=== PATIENT | female | born 1970 | race Caucasian/White ===

== ENCOUNTER 2016-06-28 03:33 | Emergency (ER) | payer OTHER ==
[2016-06-28] MEDS ORDERED: KETOROLAC TROMETHAMINE 30 MG/1 ML VIAL IVPUSH ONE (03:49)
--- NOTE | 2016-06-28 03:49 | PDOC ---
History of Present Illness - General Chief Complaint: Pain, Acute Stated Complaint: RLQ PAIN RADIATING INTO BACK Time Seen by Provider: 06/28/16 03:41 History Source: Patient Exam Limitations: No Limitations - History of Present Illness Initial Comments: 06/28/16 03:49 This is a 46-year-old female who comes in complaining of right lower quadrant, right back and right flank pain. Patient Is being treated for stage IV metastatic breast cancer. Patient is undergoing chemotherapy. Patient was recently started on antibiotics for treatment of a urinary tract infection with Cipro. Patient now comes in complaining of increased urination, foul-smelling urine and dysuria. In addition that she is complaining of some right thigh Back pain. Patient denies any nausea, vomiting or diarrhea. Patient denies any fevers or chills. Patient went back to her doctor on 2 days ago and had a repeat urine that did show some white cells and bacteria still even with the treatment urine culture was not available at that time. PAST MEDICAL HISTORY: no significant history PAST SURGICAL HISTORY: no significant history FAMILY HISTORY: no pertinant history SOCIAL HISTORY: Pt lives with family and is employed. MEDICATIONS: reviewed ALLERGIES: As per nursing notes Review of Systems General: No fevers or chills, no weakness, no weight loss HEENT: No change in vision. No sore throat,. No ear pain CardioVascular: No chest pain or shortness of breath Respiratory:No cough, or wheezing. Gastrointestinal: no nausea, vomitting, diarrhea or constipation, No rectal bleeding Genitourinary: No dysuria, hematuria, or frequency Musculoskeletal: No joint or muscle pain or swelling Neurologic: No headache, vertigo, dizziness or loss of consciousness Psychiatric: nor depression Skin: No rashes or easy bruising Endocrine: no increased thirst or abnormal weight change Allergic: no skin or latex allergy All other systems reviewed and normal Exam: General: Well-nourished well-developed individual, no acute distress HEENT: Throat: Normal, tonsils normal, no erythema or exudate Neck: Supple, no meningeal signs, no lymphadenopathy Eyes::Pupils equal reactive and round, extraocular motion intact Chest: Nontender to palpation Cardiac: S1-S2 normal, regular rate and rhythm, no murmurs rubs or gallops Respiratory: Lungs clear to auscultation bilateral Abdomen: Soft, nondistended, normal bowel sounds, nontender to palpation diffusely Back/Flank: Is tenderness on palpation right CVA area as well as right flank. Extremities: Warm, dry, no cyanosis, clubbing, or edema Skin: No rashes Neuro: Alert and oriented x3, nonfocal exam, grossly intact, normal gait Psych: Normal mood and affect 06/28/16 05:00 Urinalysis shows large amount of bacteria and white cells. Assessment and plan: This is a 46-year-old female who comes in complaining of right flank and right lower quadrant abdominal pain. Patient does have a cystitis/infected urinalysis and most likely a early pyelonephritis. Patient does not have a white count or left shift. Discussed with patient imaging to rule out bladder metastases however she said a lot of her metastases do not show up on imaging and she will most likely will need a cystoscopy however since it does appear that she had a inadequately treated urinary tract was resistant Cipro a round of targeted antibiotics may clear of her symptoms. Patient given ceftriaxone here in the emergency room and is not being sent home on any by mouth antibiotics as I want to try to specifically targeted her antibiotic to the organism. Patient will call her oncologist today and get the results of the cultures and sensitivity of her urine and have her oncologist make the decision as to which antibiotic she wants to continue to have the patient take. Patient told to take Naprosyn or Motrin for the pain as needed Patient discharged will follow-up with her oncologist. Past History - Past Medical History Allergies/Adverse Reactions: Allergies Allergy/AdvReac Type Severity Reaction Status Date / Time No Known Allergies Allergy Verified 12/29/15 18:53 Home Medications: Ambulatory Orders Celecoxib [Celebrex] 200 mg PO PRN PRN 12/29/15 Venlafaxine HCl ER [Effexor Xr -] 150 mg PO DAILY 12/29/15 Ciprofloxacin HCl [Cipro] 500 mg PO BID 06/28/16 Gemcitabine HCl 1 gm IV ASDIR 06/28/16 Cancer: Yes (STAGE 4) - Psycho/Social/Smoking Cessation Hx Anxiety: No Suicidal Ideation: No Smoking History: Never smoked Have you smoked in the past 12 months: No Hx Alcohol Use: No Drug/Substance Use Hx: No Substance Use Type: Prescribed ED Treatment Course - LABORATORY CBC & Chemistry Diagram: 06/28/16 03:50 06/28/16 03:50 *DC/Admit/Observation/Transfer Diagnosis at time of Disposition: Pyelonephritis Urinary tract infection Qualifiers: Urinary tract infection type: acute cystitis Hematuria presence: without hematuria Qualified Code(s): N30.00 - Acute cystitis without hematuria - Discharge Dispostion Disposition: HOME Condition at time of disposition: Stable Admit: No - Patient Instructions Additional Instructions: Call your oncologist this morning and let them know you were in the emergency room and we feel that you have a urinary tract infection that was inadequately treated secondary to antibiotic resistance. That your oncologist know that you are given ceftriaxone 1 g but not started on any additional antibiotics as I want any additional antibiotics to be targeted specifically to the organism once his sensitivity of the organism is known. The results of your culture should be back at this time and I will leave it to your oncologist to make the antibiotic choice for oral antibiotics. For the back and flank pain take ibuprofen or Naprosyn. Return to the emergency department immediately with ANY new, persistent or worsening symptoms. Continue any medications as previously prescribed by your physician. You should follow up with your primary doctor as soon as possible regarding today's emergency department visit. . Please make sure your doctor reviews the results of your emergency evaluation. Thank you for coming to the Emergency Department today for your care. It was a pleasure to see you today. Please note that your evaluation is INCOMPLETE until you follow-up with your doctor.
[2016-06-28] MEDS ORDERED: SODIUM CHLORIDE 1,000 ML IV ONE (03:50)
[2016-06-28] MEDS ORDERED: KETOROLAC TROMETHAMINE 30 MG/1 ML VIAL ONE (03:54)
[2016-06-28 04:00] VITALS: BP 104/66; PULSE 69; TEMP 97.6; BMI 17.6
[2016-06-28 04:20] LABS: URINE BILIRUBIN NEGATIVE (NEGATIVE); URINE COLOR LT. YELLOW; URINE GLUCOSE (UA) NEGATIVE (NEGATIVE); URINE KETONE NEGATIVE (NEGATIVE); URINE UROBILINOGEN 0.2 E.U/dl E.U./dl (0.2-1.0)
[2016-06-28 04:22] LABS: BASOPHIL 0.4 % (0-2.0); EOSINOPHIL 0.5 % (0-4.5); MCH 29.6 pg (25.7-33.7); MCHC 32.9 g/dl (32.0-36.0); MEAN PLT VOLUME 9.4 fl (7.5-11.1); NEUTROPHILS 62.9 % (42.8-82.8); PLATELET COUNT 278 K/MM3 (134-434); RDW 14.9 % (11.6-15.6)
[2016-06-28 04:27] LABS: URINE APPEARANCE CLOUDY; URINE BLOOD 3+ (NEGATIVE); URINE LEUK ESTERASE 2+ (NEGATIVE); URINE NITRITE POSITIVE (NEGATIVE); URINE PROTEIN 2+ (NEGATIVE)
[2016-06-28 04:29] LABS: URINE BACTERIA MODERATE /hpf (NONE SEEN); URINE MUCUS FEW; URINE RBC 41 /hpf (0-3); URINE WBC 1216 /hpf (3-5)
[2016-06-28 04:40] LABS: ALBUMIN 3.5 g/dl (3.4-5.0); ALK PHOS 46 U/L (45-117); ANION GAP 10 (8-16); BILIRUBIN,TOTAL 0.4 mg/dL (0.2-1.0); CO2 24 mmol/L (21-32); COCKROFT - GAULT 79.2115; CREATININE 0.7 mg/dL (0.55-1.02); GLUCOSE,RANDOM 99 mg/dL (74-106); SGPT/ALT 21 U/L (12-78); TOT PROT 6.3 g/dl (6.4-8.2)
[2016-06-28 04:44] LABS: SGOT/AST 25 U/L (15-37)
[2016-06-28] MEDS ORDERED: cefTRIAXone SODIUM 1 GM VIAL ONE (04:56)
[2016-06-28] MEDS ORDERED: CEFTRIAXONE 1 GM in DEXTROSE 5%-WATER - 50 ML IVPB ONE (04:56)
== END 2016-06-28 05:39 | disposition home or self-care (01) ==
LOC: FER 03:33
PROC: 3E033GC Introduction of Other Therapeutic Substance into Peripheral Vein, Percutaneous Approach (ICD-10-PCS; principal; 2016-06-28)
PROC: 3E0333Z Introduction of Anti-inflammatory into Peripheral Vein, Percutaneous Approach (ICD-10-PCS; 2016-06-28)
PROC: 3E0337Z Introduction of Electrolytic and Water Balance Substance into Peripheral Vein, Percutaneous Approach (ICD-10-PCS; 2016-06-28)
DX: N30.00 Acute cystitis without hematuria (principal); C50.919 Malignant neoplasm of unspecified site of unspecified female breast; Z79.899 Other long term (current) drug therapy
CPT/HCPCS: 36415; 80053; 81003; 81015; 83690; 85025; 99281-25

== ENCOUNTER 2017-01-14 22:23 | Emergency (ER) | payer OTHER ==
[2017-01-14] MEDS ORDERED: SODIUM CHLORIDE 500 ML IV STA (22:30)
[2017-01-14] MEDS ORDERED: HYDROmorphone HCL CARPU-JECT 1 MG/1 ML DISP.SYRIN IVPB ONE (22:31)
--- NOTE | 2017-01-14 22:37 | PDOC ---
History of Present Illness - General Chief Complaint: Pain, Acute Stated Complaint: PAIN POST PROCEDURE ON SUNDAY Time Seen by Provider: 01/14/17 22:29 - History of Present Illness Initial Comments: 01/14/17 22:37 This 46-year-old woman with stage IV breast cancer presents with a few hour history of epigastric pain. Breast cancer was first diagnosed in June,. Metastasis to stomach was subsequently diagnosed. Patient had delayed gastric emptying and underwent stent procedure (first temporary stent placed last week which patient did well with). 2 days ago, patient had endoscopic placement of permanent stent at [facility]. Patient also believes there was an unsuccessful attempt at cannulation of biliary tract ducts during the procedure. She had significant epigastric pain and nausea/vomiting/fever yesterday. Today, she states that she felt somewhat better during the day but this evening, approximately an hour prior to presentation as she was lying in bed, she had sudden onset of severe epigastric pain "10/10". She denies nausea or vomiting now. Patient had taken oral pain medication earlier today but none since onset of severe pain. Low-grade (99) fever today. Patient has been on Taxol chemotherapy weekly with most recent treatment last Sunday, January Past History - Past Medical History Allergies/Adverse Reactions: Allergies Allergy/AdvReac Type Severity Reaction Status Date / Time No Known Allergies Allergy Verified 01/14/17 22:24 Home Medications: Ambulatory Orders Venlafaxine HCl ER [Effexor Xr -] 150 mg PO DAILY 12/29/15 Cholecalciferol (Vitamin D3) [Vitamin D3] 2,000 unit PO DAILY 01/14/17 Paclitaxel [Taxol] 0 mg IV WEEKLY 01/14/17 Prilosec 20 mg PO DAILY 01/14/17 Cancer: Yes (STAGE 4) - Suicide/Smoking/Psychosocial Hx Smoking History: Never smoked Have you smoked in the past 12 months: No Hx Alcohol Use: No Drug/Substance Use Hx: No Substance Use Type: Prescribed Review of Systems - Review of Systems Able to Perform ROS?: Yes Comments:: 12 point review of systems is negative except for what is noted in the history of present illness *Physical Exam - Physical Exam Comments: GENERAL: Adult female, pale/cachectic, in moderate distress secondary to epigastric pain HEAD: Normal with no signs of trauma. EYES: PERRLA, EOMI, sclera anicteric, conjunctiva clear. ENT: Ears normal, nares patent, oropharynx clear without exudates. Dry mucous membranes. NECK: Normal range of motion, supple without lymphadenopathy, JVD, or masses. LUNGS: Breath sounds equal, clear to auscultation bilaterally. No wheezes, and no crackles. HEART:Regular rate and rhythm, normal S1 and S2 without murmur, rub or gallop. ABDOMEN: Hypoactive bowel sounds, moderate midepigastric tenderness without guarding or rebound; no distention noted. EXTREMITIES: Normal range of motion, no edema. No clubbing or cyanosis. No erythema, or tenderness. NEUROLOGICAL: Cranial nerves II through XII grossly intact. Normal speech. No focal neurological deficits. MUSCULOSKELETAL: Back non-tender to palpation, no CVA tenderness SKIN: Warm, Dry, normal turgor, no rashes or lesions noted. ED Treatment Course - LABORATORY CBC & Chemistry Diagram: 01/14/17 22:30 01/14/17 22:30 Progress Note - Progress Note Progress Note: Laboratory evaluation notable for normal white blood cell count (5400). Presence of mild anemia with hemoglobin of 10/hematocrit 30. LFTs notable for alkaline phosphatase of 1086; patient states that she has underlying marked elevation of alkaline phosphatase. Lipase is mildly elevated at 93. Imaging study of upper abdominal ultrasound was of limited value: No clear indication of migration of stent or free air (although CT was needed for conclusive evidence that free air not present). Ascites present. Abdominal/pelvic CT with IV contrast performed. Notable findings included no evidence of acute pancreatitis/no free air/no indication of migration of the stent. There was a small filling defect in the left portal vein, presumed to be thrombus. There was inflammatory or perhaps neoplastic changes to the peritoneum Medical Decision Making - Medical Decision Making 01/15/17 02:16 Laboratory studies/ultrasound/abdominal and pelvic CT results discussed with [[phone]]covering for the patient's sheep boner (Dr Castro) . -No evidence of free air/stent migration/severe acute pancreatitis noted in CT -Evidence of possible filling defect in left portal vein noted. Considering the patient's underlying metastatic malignancy, risks and benefits of anticoagulation would need to be fully discussed with milk collector. Given this , admission for immediate anticoagulation unwarranted. The patient should contact her sheep boner in the a.m. for follow-up. 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 She is aware of the rest and benefits of anticoagulation and agrees that follow-up with her own sheep boner is best course of action She is currently comfortable after 2 mg Dilaudid IV over the last 4 hours along with a liter of normal saline IV. She has no further nausea/vomiting. Patient has Vicodin at home (was intolerant of Percocet in the past and has had no other oral pain medication prescribed previously); she will take Vicodin as needed if she has any breakthrough pain. She will return to the ER if she has persistent severe pain or develops vomiting/fever. Otherwise, she will contact her sheep boner in the morning and follow-up in the very near future. *DC/Admit/Observation/Transfer Diagnosis at time of Disposition: Epigastric pain - Discharge Dispostion Disposition: HOME Condition at time of disposition: Stable - Referrals - Patient Instructions Additional Instructions: Continue Vicodin as needed Fluids as tolerated Call in a.m. to arrange for follow-up Return to ER if you have persistent severe pain or develop vomiting/fever - Post Discharge Activity
[2017-01-14 22:53] VITALS: BMI 15.3
[2017-01-14] MEDS ORDERED: HYDROmorphone HCL CARPU-JECT 1 MG/1 ML DISP.SYRIN IVPUSH ONE (22:57)
[2017-01-14 23:00] LABS: PLATELET COUNT 614 K/MM3 (134-434); WHITE BLOOD COUNT 5.4 K/mm3 (4.0-10.8)
[2017-01-14 23:03] LABS: BASOPHIL 0.4 % (0-2.0); EOSINOPHIL 0.6 % (0-4.5); MCH 28.6 pg (25.7-33.7); MCHC 33.4 g/dl (32.0-36.0); MEAN CELL VOLUME 85.9 fl (80-96); NEUTROPHILS 67.3 % (42.8-82.8); RDW 19.3 % (11.6-15.6)
[2017-01-14 23:11] LABS: ALBUMIN 3.1 g/dl (3.5-5.0); ANION GAP 8 (8-16); BILIRUBIN,TOTAL 0.9 mg/dl (0.2-1.0); CALCIUM 8.7 mg/dl (8.4-10.2); CO2 24 mmol/L (22-28); CREATININE 0.7 mg/dl (0.6-1.3); GLUCOSE,RANDOM 93 mg/dl (74-106); SGOT/AST 42 U/L (10-42); SGPT/ALT 51 U/L (10-40); TOT PROT 5.9 g/dl (6.4-8.3)
[2017-01-14 23:32] LABS: ALK PHOS 1086 U/L (32-92)
[2017-01-14 23:33] VITALS: BP 129/88; PULSE 66; TEMP 97.9
[2017-01-14] MEDS ORDERED: HYDROmorphone HCL CARPU-JECT 1 MG/1 ML DISP.SYRIN ONE (23:58)
[2017-01-15] MEDS ORDERED: HYDROmorphone HCL CARPU-JECT 1 MG/1 ML DISP.SYRIN IVPUSH ONE (00:16)
[2017-01-15] MEDS ORDERED: SODIUM CHLORIDE 1,000 ML IV STA (01:06)
[2017-01-15] MEDS ORDERED: SODIUM CHLORIDE 500 ML IV STA (01:15)
== END 2017-01-15 02:13 | disposition home or self-care (01) ==
LOC: FER 22:23
PROC: 3E033NZ Introduction of Analgesics, Hypnotics, Sedatives into Peripheral Vein, Percutaneous Approach (ICD-10-PCS; principal; 2017-01-14)
PROC: 3E0337Z Introduction of Electrolytic and Water Balance Substance into Peripheral Vein, Percutaneous Approach (ICD-10-PCS; 2017-01-14)
DX: R10.13 Epigastric pain (principal); Z85.3 Personal history of malignant neoplasm of breast; C16.9 Malignant neoplasm of stomach, unspecified
CPT/HCPCS: 36415; 74177-TC; 76705-TC; 80053; 83690; 85025; 99282-25

== ENCOUNTER 2017-04-15 15:50 | Emergency (ER) | payer OTHER ==
[2017-04-15 16:20] VITALS: BP 117/82; PULSE 114; TEMP 97.8; BMI 14.8
[2017-04-15] MEDS ORDERED: HYDROmorphone HCL CARPU-JECT 1 MG/1 ML DISP.SYRIN IVPUSH ONE (17:05)
[2017-04-15] MEDS ORDERED: HYDROmorphone HCL CARPU-JECT 1 MG/1 ML DISP.SYRIN ONE (17:12)
[2017-04-15 18:04] LABS: HEMOGLOBIN 7.7 GM/dl (10.7-15.3); WHITE BLOOD COUNT 5.1 K/mm3 (4.0-10.8)
[2017-04-15 18:10] LABS: ACTIVATED PTT 27.9 SECONDS (24.0-38.9)
[2017-04-15 18:12] LABS: ALK PHOS 537 U/L (32-92); ANION GAP 7 (8-16); BILIRUBIN,TOTAL 2.6 mg/dl (0.2-1.0); BLOOD UREA NITROGEN 17 mg/dl (7-18); CHLORIDE 106 mmol/L (98-107); CO2 22 mmol/L (22-28); CREATININE 0.4 mg/dl (0.6-1.3); GLUCOSE,RANDOM 99 mg/dl (74-106); MAGNESIUM 1.7 mg/dL (1.8-2.4); POTASSIUM 3.8 mmol/L (3.5-5.1); SGOT/AST 129 U/L (10-42); SGPT/ALT 131 U/L (10-40); SODIUM 135 mmol/L (136-145); TOT PROT 4.8 g/dl (6.4-8.3)
[2017-04-15 18:14] LABS: INR 1.28 (0.82-1.09); PROTHROMBIN TIME (PATIENT) 14.3 SEC (10.2-13.0)
[2017-04-15 18:15] LABS: CALCIUM 5.7 mg/dl (8.4-10.2)
[2017-04-15 18:16] LABS: ADD RBC MORPHOLOGY YES; HEMATOCRIT 24.2 % (32.4-45.2); MCH 27.8 pg (25.7-33.7); MCHC 31.7 g/dl (32.0-36.0); MEAN CELL VOLUME 87.7 fl (80-96); MEAN PLT VOLUME 9.9 fl (7.5-11.1); PLATELET COUNT 785 K/MM3 (134-434); RBC 2.76 M/mm3 (3.60-5.2); RDW 26.7 % (11.6-15.6)
[2017-04-15 18:21] LABS: ALBUMIN 0.8 g/dl (3.5-5.0)
--- NOTE | 2017-04-15 18:36 | PDOC ---
History of Present Illness - General Chief Complaint: Pain Stated Complaint: PARACENTESIS Time Seen by Provider: 04/15/17 16:10 Past History - Past Medical History Allergies/Adverse Reactions: Allergies Allergy/AdvReac Type Severity Reaction Status Date / Time No Known Allergies Allergy Verified 01/14/17 22:24 Home Medications: Ambulatory Orders Venlafaxine HCl ER [Effexor Xr -] 150 mg PO DAILY 12/29/15 HYDROmorphone [Dilaudid -] 2 mg PO Q6H PRN 04/15/17 Methylphenidate [Daytrana] 1 each TD ASDIR 04/15/17 Olanzapine [Zyprexa] 10 mg PO HS 04/15/17 Pantoprazole Sodium [Protonix] 40 mg PO DAILY 04/15/17 Scopolamine [Transderm-Scop] 2 each TD ASDIR 04/15/17 Cancer: Yes (STAGE 4 BREAST CANCER WITH METS) COPD: No GI Disorders: Yes Liver Disease: Yes (ASCITES, DRAIN IN PLACE) - Suicide/Smoking/Psychosocial Hx Smoking History: Never smoked Have you smoked in the past 12 months: No Hx Alcohol Use: No Drug/Substance Use Hx: No Substance Use Type: None *Physical Exam - Vital Signs Last Vital Signs Temp Pulse Resp BP Pulse Ox 97.8 F 114 H 20 117/82 100 04/15/17 15:59 04/15/17 15:59 04/15/17 15:59 04/15/17 15:59 04/15/17 15:59 Heart Score/ECG Review #1 04/16/17 17:35 My read: sinus tachy, rate 124, normal axis and intervals, no BRANDON ED Treatment Course - LABORATORY CBC & Chemistry Diagram: 04/15/17 17:30 04/15/17 17:30 - ADDITIONAL ORDERS Additional order review: Laboratory Results 04/15/17 04/15/17 17:30 17:30 PT with INR 14.3 H INR 1.28 H PTT (Actin FS) 27.9 Sodium 135 L Potassium 3.8 Chloride 106 D Carbon Dioxide 22 Anion Gap 7 L BUN 17 D Creatinine 0.4 L D Creat Clearance w eGFR > 60 Random Glucose 99 Calcium 5.7 L* D Magnesium 1.7 L Total Bilirubin 2.6 H D AST 129 H D ALT 131 H D Alkaline Phosphatase 537 H D Total Protein 4.8 L Albumin 0.8 L D 04/15/17 17:30 RBC 2.76 L D MCV 87.7 MCHC 31.7 L RDW 26.7 H MPV 9.9 Neutrophils % No Result Required. Lymphocytes % No Result Required. - Medications Given in the ED: ED Medications Discontinued Medications Generic Name Dose Route Start Last Admin Trade Name Manuel PRN Reason Stop Dose Admin Hydromorphone HCl 1 mg 04/15/17 17:05 04/15/17 17:25 Dilaudid Injection - IVPUSH 04/15/17 17:06 1 mg ONCE ONE Administration Medical Decision Making - Medical Decision Making 04/15/17 19:19 The patient is clinically sober, free from distracting injury, appears to have intact insight and judgment and reason and in my opinion has the capacity to make decisions. The patient presents with . I have explained that I am concerned that this may represent ; they have verbalized an understanding of my concerns. I have told the patient that while their ___ were normal, they could still have ___. I have discussed the need for ____ to get more information about potential causes of the patients ___(ex: pain). I have told the patient that if they leave and have ___, they could get much worse, could become critically ill, and could possibly become disabled or . I have offered to give the patient more pain medication. I have asked them to stay in the hospital for serial ___ exams. I have offered to have an ___ instead of a __ _. I have discussed these concerns with the patients ___ (family) who is at the bedside and ___ is unable to convince them to stay for further evaluation. The patient is not willing to undergo a ____. He is unwilling to stay overnight for monitoring. He is refusing any further care and is leaving against medical advice. I am unable to convince the patient to stay, I have asked them to return as soon as possible to complete their evaluation. I have spoken with coverage for their primary care doctor in regards to their ___. I have answered all their questions. *DC/Admit/Observation/Transfer Diagnosis at time of Disposition: Abdominal pain - Discharge Dispostion Disposition: AGAINST MEDICAL ADVICE Condition at time of disposition: Good Admit: No - Referrals - Patient Instructions Printed Discharge Instructions: DI for Abdominal Pain-Adult Additional Instructions: You are leaving AGAINST MEDICAL ADVICE. This puts you at risk for worsening pain , infection, disability or . Follow-up with your oncology doctors as soon as possible within 24 hours. Return to the emergency department for further evaluation at any time. - Post Discharge Activity - Attestations Physician Attestion: 04/15/17 19:19 I, Dr. Nathanael Saravia MD, attest that this document has been prepared under my direction and personally reviewed by me in its entirety. I further attest, that it accurately reflects all work, treatment, procedures and medical decision -making performed by me.
[2017-04-15 19:06] LABS: ANISOCYTOSIS 3+; MACROCYTOSIS 2+
[2017-04-15 19:07] LABS: PLATELET ESTIMATE INCREASED
--- NOTE | 2017-04-18 13:14 | EKG ---
Test Reason : Blood Pressure : / mmHG Vent. Rate : 124 BPM Atrial Rate : 124 BPM P-R Int : 112 ms QRS Dur : 068 ms QT Int : 328 ms P-R-T Axes : 059 028 032 degrees QTc Int : 471 ms SINUS TACHYCARDIA POOR R WAVE PROGRESSION LOW VOLTAGE QRS NO PREVIOUS ECGS AVAILABLE Confirmed by DWIGHT JOHNSON MD ([id number]) on 04/18/2017 1:13:45 PM Referred By: GUSTAVO Confirmed By:DWIGHT JOHNSON MD
== END 2017-04-15 19:39 | disposition left against medical advice (07) ==
LOC: FER 15:50
PROC: 3E033NZ Introduction of Analgesics, Hypnotics, Sedatives into Peripheral Vein, Percutaneous Approach (ICD-10-PCS; principal; 2017-04-15)
DX: R10.9 Unspecified abdominal pain (principal); Z85.3 Personal history of malignant neoplasm of breast
CPT/HCPCS: 36415; 80053; 83735; 85025; 85610; 85730; 86850; 86900; 86901; 93005; 99282-25